=== PATIENT | female | born 1990 | race Caucasian/White ===

== ENCOUNTER 2021-10-29 11:10 | Emergency (ER) | payer OTHER, SELFPAY ==
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
[2021-10-29 11:47] VITALS: BP 159/55; PULSE 94; RESP 20; TEMP 36.4; O2SAT 98
[2021-10-29 12:03] LABS: Pregnancy On Board Control Positive; Urine Pregnancy Test Negative
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
[2021-10-29 13:53] VITALS: BP 124/89; PULSE 86; RESP 20; TEMP 36.7; O2SAT 100
== END 2021-10-29 13:59 | disposition short-term general hospital (02) ==
PROVIDERS: Emergency Provider Emergency Medicine
DX: S06.2X9A Diffuse traumatic brain injury with loss of consciousness of unspecified duration, initial encounter (principal); V49.9XXA Car occupant (driver) (passenger) injured in unspecified traffic accident, initial encounter
CPT/HCPCS: 70450; 72125; 81025; 99285

== ENCOUNTER 2021-12-22 14:13 | Emergency (ER) | payer OTHER, SELFPAY ==
--- NOTE | ~2021-12-22 | US_ITS ---
US OB <=14 wk fetus w TV 12/22/2021 15:18 Indication: Vaginal spotting Procedure: High-resolution Limited obstetrical ultrasound including transabdominal and transvaginal t echnique Comparison: No prior studies for comparison. Findings: Uterus measures 6.8 x 3.2 x 3.9 cm. The endometrium is thickened measuring up to 1.5 cm wit h multiple internal cysts. No intrauterine gestational sac or pole identified. Right ovary with in normal limits measuring 2.9 x 1.7 x 1.6 cm. Left ovary measures 3.3 x 3.1 x 3.5 cm. There is a 3 c m left ovarian cyst. Small amount of free fluid in the pelvic cul-de-sac. Impression: 1: Thickened endometrium containing small cysts. No evidence for intrauterine . Consideratio ns include very early intrauterine , failed and ectopic . Gestational tro phoblastic disease is also a consideration, although less favored. Recommend follow-up with quantitat george beta-hCG level and ultrasound as clinically indicated. Reviewed, dictated and finalized at location A. F [employer]IA OFFICER Impression: 1: Thickened endometrium containing small cysts. No evidence for intrauterine p regnancy. Considerations include very early intrauterine , failed preg yadira and ectopic . Gestational trophoblastic disease is also a consid eration, although less favored. Recommend follow-up with quantitative beta-hCG level and ultrasound as clinically indicated.
[2021-12-22 15:05] VITALS: BP 128/87; PULSE 86; RESP 20; TEMP 36.2; O2SAT 98
--- NOTE | 2021-12-22 15:25 | ED.GENADULT ---
HPI - General Adult General Chief complaint: Unspecified Stated complaint: BLEEDING AND CRAMPING W/PREG Time Seen by Provider: 12/22/21 15:25 Source: patient Mode of arrival: ambulatory Limitations: no limitations History of Present Illness HPI narrative: Patient had a performed a home test and approximately 2 to 3 weeks ago and today while in the shower she noticed some spotting of blood with some mild left lower quadrant pain no fever chills no nausea vomiting no flank pain no dysuria or hematuria. Onset (ago): hour(s) Severity: mild Related Data Home Medications Medication Instructions Recorded Confirmed No Home Medications 10/29/21 10/29/21 Allergies Allergy/AdvReac Type Severity Reaction Status Date / Time Sulfa (Sulfonamide Allergy Swelling Verified 12/22/21 15:14 Antibiotics) Review of Systems Review of Systems: All systems reviewed & are unremarkable except as noted in HPI and below PMFSH Past Medical History Medical History Patient denies medical problems Exam Const: General: cooperative, healthy appearing, comfortable, no acute distress, well developed, alert, awake and Physically active HENMT: Head: normal to inspection Ears: hearing grossly normal bilaterally General nose exam: Normal external nose present Face and sinus: normal facial exam Mouth: Yes Normal oral and palatal mucosa present Eyes: General: appearance normal, both eyes and all related structures Neck: Neck: normal visual inspection, full ROM, no lymphadenopathy and no meningeal signs Chest: Chest palpation & inspection: normal inspection of the chest Resp: Effort & Inspection: normal respiratory effort Cardio: Jugular venous distension: no JVD Palpation: normal PMI Rate: regular rate Rhythm: regular rhythm GI: Inspection: normal to inspection Other: Tender left lower quadrant crampy like pain Urinary Catheter: Urinary Catheter: patent and draining and urine clear Skin: General skin exam: normal color Neuro: General: oriented to person, oriented to place and oriented to time Psych: Appearance: grossly normal and well kempt Course Course Emergency Course: ultrasound reviewed with patient as well as blood work and serum test reviewed. serum beta HCG was reviewed with patient and the value was 1 which is less than 6 which is in a non range, ultrasound was also addressed with patient which does not show a uterine sac there is a left ovarian cyst. Vital Signs Vital signs: Vital Signs Temperature 36.2 C L 12/22/21 15:05 Pulse Rate 86 12/22/21 15:05 Respiratory Rate 20 12/22/21 15:05 Blood Pressure 128/87 12/22/21 15:05 Pulse Oximetry 98 12/22/21 15:05 Temperature 36.2 C L 12/22/21 15:05 Pulse Rate 86 12/22/21 15:05 Respiratory Rate 20 12/22/21 15:05 Blood Pressure 128/87 12/22/21 15:05 Pulse Oximetry 98 12/22/21 15:05 Medical Decision Making Vital Signs Vital Signs: Vital Signs Temperature 36.2 C L 12/22/21 15:05 Pulse Rate 86 12/22/21 15:05 Respiratory Rate 20 12/22/21 15:05 Blood Pressure 128/87 12/22/21 15:05 Pulse Oximetry 98 12/22/21 15:05 Temperature 36.2 C L 12/22/21 15:05 Pulse Rate 86 12/22/21 15:05 Respiratory Rate 20 12/22/21 15:05 Blood Pressure 128/87 12/22/21 15:05 Pulse Oximetry 98 12/22/21 15:05 Critical Care Time Critical Care Time Critical Care Time: No Discharge Plan Discharge Clinical Impression: Vaginal spotting Patient Disposition: Home, Self-Care Condition: Stable Instructions: Antibiotic Form, Abnormal (Dysfunctional) Uterine Bleeding (ED) Additional Instructions: advised Tylenol or Motrin as needed for pain and follow-up with a supervisor treating and pumping within 1 to 2 weeks further evaluation and treatment. Prescriptions: No Action No Home Medications RF: 0 Follow-up/Referrals: UNKNOWN,
[2021-12-22 15:29] LABS: Basophils Absolute Auto 0.03 K/mm3 (0.00-0.10); Basophils Percent Auto 0.4 % (0.0-1.0); Eosinophils Absolute Auto 0.22 K/mm3 (0.02-0.50); Eosinophils Percent Auto 3.2 % (1.0-6.0); Hematocrit 42.8 % (35.0-49.0); Hemoglobin 14.2 g/dL (12.0-15.0); Immature Granulocyte Absolute 0.02 K/mm3 (0.00-0.00); Immature Granulocyte Percent A 0.3 % (0.0-0.0); Lymphocytes Absolute Auto 2.33 K/mm3 (1.10-4.50); Lymphocytes Percent Auto 33.5 % (18.0-42.0); Mean Corpuscular HGB Conc 33.2 g/dL (32.0-36.0); Mean Corpuscular Volume 90.5 fL (78.0-102.0); Mean Platelet Volume 9.3 fl (9.2-11.8); Monocytes Absolute Auto 0.42 K/mm3 (0.10-0.90); Neutrophils Absolute Auto 3.9 K/mm3 (1.7-7.2); Neutrophils Percent Auto 56.6 % (50.0-70.0); Platelet Count Result 305 K/mm3 (150-420); Red Blood Count 4.73 M/mm3 (4.20-5.40); Red Cell Distribution Width 13.2 % (11.6-14.4)
[2021-12-22 15:29] LABS: Add Urine Microscopic? YES; Appearance Urine Sl Cloudy (Clear); Bilirubin Urine Negative (Negative); Blood Urine 3+ (Negative); Color Urine Yellow (Yellow); Glucose Urine UA Negative (Negative); Ketones Urine Negative (Negative); Leukocyte Esterase Ur Negative (Negative); Nitrate Urine Negative (Negative); Protein Urine Trace (Negative); Specific Grav Ur >= 1.030 (1.010-1.020); Urobilinogen Urine 0.2 mg/dL (0.2-1.0); pH Urine 5.5 (5.0-8.0)
[2021-12-22 15:36] LABS: Bacteria Urine 1+ /hpf; Squamous Epithelial Cell Urine Few /hpf (Few); WBC Urine None seen /hpf (0-3)
[2021-12-22 15:43] LABS: Partial Thromboplastin Time 28.5 SEC (23.90-30.70); Prothrombin Time 10.2 Seconds (9.50-12.10)
[2021-12-22 15:54] LABS: Alanine Aminotransferase 34 U/L (14-59); Albumin Level 3.7 g/dL (3.4-5.0); Alkaline Phosphatase 68 U/L (46-116); Anion Gap 12 mmol/L (8-16); Aspartate Amino Transferase 21 U/L (15-37); Bilirubin,Total 0.4 mg/dL (0.00-1.00); Blood Urea Nitrogen 9 mg/dL (7-18); Calcium 8.7 mg/dL (8.5-10.1); Carbon Dioxide 25 mmol/L (21-32); Chloride 103 mmol/L (98-108); Estimated CRCL calculation 133 ml/min; Estimated Glomerular Filt Rate > 60; Glucose 95 mg/dL (70-99); Osmolality Calculated 288 mOsm/kg (285-295); Potassium 3.8 mmol/L (3.5-5.1); Sodium 140 mmol/L (136-145); Total Protein 7.5 g/dL (6.4-8.2)
[2021-12-22 15:59] LABS: Beta HCG Quantitative < 1.00 mIU/mL (0-6)
[2021-12-22 16:24] VITALS: PULSE 80; RESP 20; TEMP 36.7; O2SAT 98
== END 2021-12-22 16:26 | disposition home or self-care (01) ==
PROVIDERS: Emergency Provider Emergency Medicine
DX: N93.9 Abnormal uterine and vaginal bleeding, unspecified (principal)
CPT/HCPCS: 36415; 76801; 76817; 80053; 81001; 84702; 85025; 85610; 85730; 99284